=== PATIENT | female | born 1985 ===

== ENCOUNTER 2021-07-10 04:23 | Inpatient (IN) | payer MEDICAID ==
[2021-07-08 13:24] LABS: Albumin 2.7 g/dL (3.4-5.0); Calcium 8.7 mg/dL (8.5-10.1); Potassium 3.8 mmol/L (3.5-5.1)
[2021-07-08 13:24] LABS: Alcohol, Urine < 3.0 mg/dL (0-10); Amphetamine Screen, Urine NEGATIVE (NEGATIVE); Barbiturate Scree,Urine NEGATIVE (NEGATIVE); Benzodiazephine Screen, Urine NEGATIVE (NEGATIVE); Cannabinoid Screen, Urine NEGATIVE (NEGATIVE); Cocaine Screen, Urine NEGATIVE (NEGATIVE); Opiate Scree,Urine NEGATIVE (NEGATIVE); Phencyclidine Screen, Urine NEGATIVE (NEGATIVE)
[2021-07-08 13:28] LABS: Basophils # (auto) 0 10 ^3/uL (0-0.2); Eosinophils # (auto) 0.1 10 ^3/uL (0-0.8); Lymphocytes # (auto) 1.2 10 ^3/uL (0.4-5.4); Mean Corpuscular Volume 78.4 fL (80.0-100.0); Neutrophils % (auto) 72.6 % (37.0-80.0); Nucleated Red Blood Cells % 0.1 %; White Blood Cell 5.7 10^3/uL (4.4-10.8)
[2021-07-08 13:29] LABS: BUN/Creatinine Ratio 14.5; Bilirubin, Total 0.4 mg/dL (0.2-1.0); Total Protein 6.9 g/dL (6.4-8.2)
[2021-07-08 13:30] LABS: Basophils % (auto) 0.4 % (0.0-2.0); Eosinophils % (auto) 1.7 % (0.0-7.0); Hematocrit 32.2 % (36.0-46.0); Hemoglobin 10.9 g/dL (12.2-16.2); Lymphocytes % (auto) 20.7 % (10.0-50.0); Mean Corpuscular Hemoglobin 26.5 pg (28.0-32.0); Mean Corpuscular Hgb Conc. 33.8 g/dL (32.0-36.0); Monocytes # (auto) 0.3 10 ^3/uL (0-1.3); Monocytes % (auto) 4.6 % (0.0-12.0); Neutrophils # (auto) 4.1 10 ^3/uL (1.6-8.6); Red Cell Distribution Width 15.7 % (11.8-14.3)
[2021-07-08 13:40] LABS: Urine Bacteria MANY /hpf (None Seen); Urine Blood Negative /uL (Negative); Urine Mucus FEW (None Seen); Urine Specific Gravity 1.029 (1.001-1.035); Urine WBC 4 /hpf (0 - 5)
[2021-07-08 13:51] LABS: INR 0.99 (0.9-1.15); Partial Thromboplastin Time 30.5 sec (23.6-33.0)
[2021-07-09 07:06] LABS: RPR Non Reactive (Non Reactive)
[2021-07-09 14:30] VITALS: BP 134/87
[~2021-07-10] VITALS: Ht 157.5 cm; Wt 77.1 kg
[2021-07-10] VITALS (14 sets, daily range): BP systolic 113–143; BP diastolic 67–93
[2021-07-10] MEDS ORDERED: ceFAZolin 1GM/50ML 50 ML IV ONE (04:45)
[2021-07-10] MEDS ORDERED: LACTATED RINGER'S 1,000 ML IV ONE (04:45)
[2021-07-10] MEDS ORDERED: IBUP800T27 PO (09:11)
[2021-07-10] MEDS ORDERED: DOCU-94 PO (09:11)
[2021-07-10] MEDS ORDERED: HYDR-4902 PO (09:11)
[2021-07-10] MEDS ORDERED: ceFAZolin 1GM/50ML 50 ML IV SCH (09:15)
[2021-07-10] MEDS ORDERED: ONDANSETRON HCL 4 MG/2 ML VIAL IV PRN ×2 (09:15→11:30)
[2021-07-10] MEDS: SODIUM CITR/CITRIC ACID ORAL SOLN 30 ML PO SCH ×2 (09:24→17:18)
[2021-07-10] MEDS ORDERED: TETRACAINE 1% INJ 2 ML VIAL IJ ONE (09:30)
[2021-07-10] MEDS ORDERED: MORPHINE SULF PF 5 MG/10 ML VIAL ONE (09:34)
[2021-07-10] MEDS ORDERED: CARBOPROST TROMETHAMINE 250 MCG/1ML VIAL IM ONE (10:26)
[2021-07-10] MEDS ORDERED: oxyTOCIN 10 UNIT/ML 10ML VIAL ONE (11:13)
[2021-07-10] MEDS ORDERED: ePHEDrine SULFATE 50 MG/ML AMP ONE (11:13)
[2021-07-10] MEDS ORDERED: ONDANSETRON HCL 4 MG/2 ML VIAL ONE ×2 (11:13)
[2021-07-10] MEDS ORDERED: NALBUPHINE HCL 10 MG/1ml INJECTION SUBCUT ONE (11:30)
[2021-07-10] MEDS ORDERED: HYDROmorphone HCL 2 MG/ML VL IV PRN (11:30)
[2021-07-10] MEDS ORDERED: diphenhdrAMINE HCL 50 MG/1 ML VL IV PRN (11:30)
[2021-07-10] MEDS ORDERED: DexAMETHasone SOD PHOS 10MG/1ML VIAL INJ IV PRN (11:30)
[2021-07-10] MEDS ORDERED: NALOXONE HCL 0.4 MG/ML VIAL IV PRN (11:30)
[2021-07-10] MEDS ORDERED: DIPHENOXYLATE W/ATROPINE 2.5 MG TAB PO ONE (11:45)
[2021-07-10] MEDS: ACETAMINOPHEN IV 1000 MG/100ML (10MG/ML) IV PRN ×2 (12:06→20:50)
[2021-07-10] MEDS: LACTATED RINGER'S 1,000 ML IV SCH ×3 (12:11→20:45)
[2021-07-10] MEDS: LACT. RINGERS/OXYTOCIN 20UNITS 1,000 ML IV SCH ×2 (12:14→17:42)
[2021-07-10] MEDS: ceFAZolin 1GM/50ML 50 ML IV SCH (17:32)
[2021-07-10 21:21] LABS: Basophils # (auto) 0 10 ^3/uL (0-0.2); Eosinophils # (auto) 0 10 ^3/uL (0-0.8); Eosinophils % (auto) 0.4 % (0.0-7.0); Lymphocytes # (auto) 1.1 10 ^3/uL (0.4-5.4); Monocytes # (auto) 0.3 10 ^3/uL (0-1.3); Neutrophils # (auto) 5.5 10 ^3/uL (1.6-8.6)
[2021-07-10 21:23] LABS: Basophils % (auto) 0.6 % (0.0-2.0); Hemoglobin 9.6 g/dL (12.2-16.2); Lymphocytes % (auto) 15.7 % (10.0-50.0); Mean Corpuscular Hemoglobin 26.1 pg (28.0-32.0); Mean Corpuscular Hgb Conc. 34.1 g/dL (32.0-36.0); Mean Corpuscular Volume 76.6 fL (80.0-100.0); Monocytes % (auto) 4.5 % (0.0-12.0); Neutrophils % (auto) 78.8 % (37.0-80.0); Red Blood Cells 3.66 10^6/uL (4.0-5.20); Red Cell Distribution Width 15.8 % (11.8-14.3); White Blood Cell 6.9 10^3/uL (4.4-10.8)
[2021-07-11] VITALS (17 sets, daily range): BP systolic 101–134; BP diastolic 62–81
[2021-07-11] MEDS: ceFAZolin 1GM/50ML 50 ML IV SCH ×2 (01:44→09:38)
[2021-07-11] MEDS: ACETAMINOPHEN IV 1000 MG/100ML (10MG/ML) IV PRN (05:13)
[2021-07-11 07:48] LABS: Basophils # (auto) 0 10 ^3/uL (0-0.2); Basophils % (auto) 0.6 % (0.0-2.0); Eosinophils # (auto) 0.1 10 ^3/uL (0-0.8); Eosinophils % (auto) 0.9 % (0.0-7.0); Hematocrit 27.7 % (36.0-46.0); Hemoglobin 9.5 g/dL (12.2-16.2); Lymphocytes # (auto) 1.1 10 ^3/uL (0.4-5.4); Lymphocytes % (auto) 14.5 % (10.0-50.0); Mean Corpuscular Hemoglobin 26.2 pg (28.0-32.0); Mean Corpuscular Hgb Conc. 34.3 g/dL (32.0-36.0); Mean Corpuscular Volume 76.4 fL (80.0-100.0); Monocytes # (auto) 0.3 10 ^3/uL (0-1.3); Monocytes % (auto) 4.2 % (0.0-12.0); Neutrophils # (auto) 6.1 10 ^3/uL (1.6-8.6); Neutrophils % (auto) 79.8 % (37.0-80.0); Red Blood Cells 3.62 10^6/uL (4.0-5.20); Red Cell Distribution Width 15.9 % (11.8-14.3); White Blood Cell 7.6 10^3/uL (4.4-10.8)
[2021-07-11] MEDS ORDERED: HYDROcodone-ACET 5/325MG TAB PO PRN (08:00)
[2021-07-11] MEDS ORDERED: IBUPROFEN 800 MG TAB PO PRN (08:00)
[2021-07-11] MEDS: DOCUSATE SOD 100 MG CAP PO SCH ×2 (09:38→22:14)
[2021-07-11] MEDS: SIMETHICONE 80 MG CHEWABLE TABLET PO SCH ×3 (11:35→22:14)
[2021-07-11] MEDS: IBUPROFEN 800 MG TAB PO PRN ×2 (12:15→21:02)
[2021-07-12 03:00] VITALS: BP 135/54
[2021-07-12] MEDS: SIMETHICONE 80 MG CHEWABLE TABLET PO SCH ×4 (05:39→22:02)
[2021-07-12] MEDS: HYDROcodone-ACET 5/325MG TAB PO PRN ×3 (05:39→22:15)
[2021-07-12 07:01] VITALS: BP 127/68
[2021-07-12] MEDS: FERROUS SULFATE 325mg EC TAB PO SCH ×2 (07:56→18:17)
[2021-07-12] MEDS: IBUPROFEN 800 MG TAB PO PRN ×2 (09:17→22:08)
[2021-07-12] MEDS: DOCUSATE SOD 100 MG CAP PO SCH ×2 (10:11→22:02)
[2021-07-12 11:05] VITALS: BP 125/66
[2021-07-12 14:30] VITALS: BP 134/87
[2021-07-12 19:00] VITALS: BP 128/68
[2021-07-12 22:41] VITALS: BP 131/77
[2021-07-13 03:00] VITALS: BP 128/82
[2021-07-13] MEDS: HYDROcodone-ACET 5/325MG TAB PO PRN (03:04)
[2021-07-13] MEDS: SIMETHICONE 80 MG CHEWABLE TABLET PO SCH (05:37)
[2021-07-13 06:45] VITALS: BP 126/69
[2021-07-13] MEDS ORDERED: MEASLES, MUMPS & RUBELLA VAC(MMRII) 0.5ML SC ONE (07:00)
[2021-07-13] MEDS: FERROUS SULFATE 325mg EC TAB PO SCH (08:27)
== END 2021-07-13 10:55 | disposition home or self-care (01) | DRG 540 ==
LOC: LDRP 04:23
PROVIDERS: ADMIT Obstetrics & Gynecology; ATTEND Obstetrics & Gynecology
PROC: 10D00Z1 Extraction of Products of Conception, Low, Open Approach (ICD-10-PCS; principal; 2021-07-10 09:39)
DX: O98.52 Other viral diseases complicating childbirth (principal); U07.1 COVID-19; O34.211 Maternal care for low transverse scar from previous cesarean delivery; O99.02 Anemia complicating childbirth; Z37.0 Single live birth; Z3A.39 39 weeks gestation of pregnancy
CPT/HCPCS: 36415; 59025; 80053; 80307; 81001; 82962; 85025; 85610; 85730; 86592; 86850; 86900; 86901; 94760; 94762; 96360; 96361; 96372; G0378; J0131; J0690; J2405; J2590